=== PATIENT | female | born 1955 | race Caucasian/White ===

== ENCOUNTER 2019-03-21 06:07 | Day surgery (SDC) | payer OTHER ==
[2019-03-21] MEDS ORDERED: PROPOFOL 10 MG/ML VIAL IV ONE (06:08)
[2019-03-21] MEDS ORDERED: LIDOCAINE 2% MDV (20MG/ML) 20ML VIAL IV ONE (06:08)
--- NOTE | 2019-03-22 09:00 | Operative Note ---
OPERATION: COLONOSCOPY with cold snare polypectomy. PREOPERATIVE DIAGNOSIS: Family history of colon polyps. POSTOPERATIVE DIAGNOSES: 1. Severe sigmoid diverticulosis. 2. Descending colon polyp. 3. Hypertrophied anal papillae. PREPARATION QUALITY: Good. ESTIMATED BLOOD LOSS: Minimum. SPECIMENS: Descending colon polyp. COMPLICATIONS: None apparent. PROCEDURE: After informed consent was obtained from the patient, she was placed in the left lateral decubitus position in the endoscopy suite, sedated and monitored by the department of anesthesia. Digital rectal exam was unremarkable. There was some hypertrophied skin in the intergluteal region. There were some excoriations as well. A well-lubricated ITO152 colonoscope was inserted into the rectum and advanced to the cecum. Preparation quality was good. The ileocecal valve, appendiceal orifice, and cecum were unremarkable. The ascending colon and transverse colon were unremarkable. The proximal descending colon revealed a 4-5 mm sessile polyp removed with a cold snare. Minimal bleeding was noted. The polyp was retrieved. The remainder of the descending colon was unrevealing. The sigmoid colon demonstrated severe diverticular changes. No inflammation or polyps were seen. The rectum was unremarkable in forward views but J-turn views did reveal 2 hypertrophied anal papillae. The endoscope was straightened, the rectal ampulla deflated, and the endoscope was removed. RECOMMENDATIONS: The patient should follow a high-fiber diet and use a fiber supplement such as Benefiber or Citrucel. I would recommend a repeat colonoscopy in 5 years pending tissue histology. As always, thank you for allowing me to participate in the healthcare of your patients. [email or web address]
== END 2019-03-21 08:27 | disposition home or self-care (01) ==
LOC: HOP 06:07
PROVIDERS: ATTEND Internal Medicine Gastroenterology
DX: Z12.11 Encounter for screening for malignant neoplasm of colon (principal); D12.4 Benign neoplasm of descending colon; K57.30 Diverticulosis of large intestine without perforation or abscess without bleeding; K62.89 Other specified diseases of anus and rectum; Z83.71 Family history of colonic polyps; I10 Essential (primary) hypertension; E78.00 Pure hypercholesterolemia, unspecified